=== PATIENT | male | born 1955 | race Two or more races ===

== ENCOUNTER 2017-09-25 18:51 | Inpatient (IN) | payer MEDICAID ==
[~2017-09-25] VITALS: Ht 170.2 cm; Wt 91.6 kg
--- NOTE | 2017-09-25 19:00 | NUR ---
PT BIBRA FROM HOME TO ER BED 12. HERE FOR WORSENING SOB FOR THE PAST WEEK. PT STATES HE HAS CP EARLIER RELIVED W/ NITRO. HX OF WA W/ STENT. GOWNED AND PLACED ON MONITOR. 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 AWAITING MD MEDRANO.
--- NOTE | 2017-09-25 19:20 | NUR ---
Minal sloan in ED - 09/25/17 at 1925 by EH TYLENOL 1G GIVEN PO PER JOAN VERBAL ORDER.
--- NOTE | 2017-09-25 19:23 | NUR ---
DR TORRES AT BEDSIDE FOR EVAL.
--- NOTE | 2017-09-25 19:45 | NUR ---
GREEN LUMBER GRADER AT BEDSIDE FOR BLOOD DRAW.
[2017-09-25 19:51] LABS: BASOPHILS # (AUTO) 0.1 /CMM (0.0-0.2); BASOPHILS % (AUTO) 1.3 % (0.0-2.0); HEMATOCRIT 44 % (39-51); HEMOGLOBIN 15.1 g/dL (13.5-17.5); LYMPHOCYTES # (AUTO) 1.5 /CMM (0.8-4.8); LYMPHOCYTES % (AUTO) 17.5 % (20.0-44.0); MEAN CORPUSCULAR HEMOGLOBIN 26 PG (26.0-33.0); MEAN CORPUSCULAR HGB CONC 34 g/dl (31.0-36.0); MEAN CORPUSCULAR VOLUME 76 fL (80-96); MONOCYTES # (AUTO) 0.3 /CMM (0.1-1.30); MONOCYTES % (AUTO) 3.6 % (2.0-12.0); NEUTROPHILS # (AUTO) 6.6 /CMM (1.8-8.9); NEUTROPHILS % (AUTO) 77.6 % (43.0-81.0); PLATELET COUNT (AUTO) 232 /CMM (150-450); RDW COEFFICIENT OF VARIATION 12.3 (11.5-15.0); RED BLOOD CELL COUNT(AUTO) 5.82 MIL/uL (4.5-6.0); WHITE BLOOD COUNT (AUTO) 8.5 K/uL (4.3-11.0)
[2017-09-25 20:02] LABS: CALCIUM, SERUM 8.9 mg/dL (8.5-10.1); CARBON DIOXIDE 21 mmol/L (21-32); CHLORIDE 104 mmol/L (98-107); CREATININE 1.1 mg/dL (0.6-1.3); GLUCOSE 142 mg/dL (74-106); POTASSIUM 3.8 mmol/L (3.5-5.1); SODIUM SERUM 137 mmol/L (136-145); UREA NITROGEN, BLOOD 26 mg/dL (7-18)
[2017-09-25 20:09] LABS: TROPONIN I < 0.017 ng/mL (0.00-0.056)
[2017-09-25 20:12] LABS: ALANINE AMINOTRANSFERASE 165 U/L (12-78); ALBUMIN 3.6 g/dL (3.4-5.0); ALKALINE PHOSPHATASE 59 U/L (46-116); ASPARTATE AMINOTRANSFERASE 55 U/L (15-37); BILIRUBIN,DIRECT 0.1 mg/dL (0.0-0.2); BILIRUBIN,TOTAL 0.5 mg/dL (0.2-1.0); TOTAL PROTEIN, SERUM 7.3 g/dL (6.4-8.2)
[2017-09-25 20:20] LABS: D-DIMER 0.19 mg/L(FEU (0.17-0.50); INR 1.15 (0.87-1.13)
[2017-09-25] MEDS ORDERED: NITROGLYCERIN PACKET 1 GM PACKET ONE (20:29)
[2017-09-25] MEDS ORDERED: NITROGLYCERIN PACKET 1 GM PACKET TOP ONE (20:30)
[2017-09-25 20:34] LABS: B-TYPE NATRIURETIC PEPTIDE 165 PG/ML (0-125)
--- NOTE | 2017-09-25 20:50 | NUR ---
BED 308-0
[2017-09-25] MEDS ORDERED: ACETAMINOPHEN 325 MG TABLET PO PRN (21:00)
[2017-09-25] MEDS ORDERED: ONDANSETRON HCL/PF 4 MG/2 ML VIAL IVP PRN (21:00)
[2017-09-25] MEDS ORDERED: ZOLPIDEM TARTRATE 5 MG TABLET PO PRN (21:00)
[2017-09-25] MEDS ORDERED: HYDROCODONE/APAP 5/325MG 1 EACH TABLET PO PRN (21:00)
[2017-09-25] MEDS ORDERED: Z GUARD REMEDY 2 OZ OINT TP PRN (21:00)
[2017-09-25] MEDS ORDERED: MAGNESIUM HYDROXIDE 30 ML UDC PO PRN (21:00)
[2017-09-25] MEDS ORDERED: MAG HYDROX/AL HYDROX/SIMETH 30 ML UDC PO PRN (21:00)
--- NOTE | 2017-09-25 21:10 | NUR ---
REPORT GIVEN TO SAUNDRA. PT AWAITING TRANSFER TO FLOOR.
--- NOTE | 2017-09-25 21:15 | NUR ---
tele/rn notes RECEIVED REPORT FROM ZIPPER TRIMMER HAND THIERNO. PATIENT ARRIVED ON A GURNEY ACCOMPANIED BY FAMILY MEMBERS, ABLE TO WALK WITH SUPERVISION AT STEADY GAIT, REQUIRE OXYGEN VIA NC AT 2L DUE TO SOB, NO PAIN REPORTED AT THIS TIME, ALERT, ORIENTED X3, SPEAKS OCCITAN BUT UNDERSTANDS MALDIVIAN, RECONCILE ORDERS, PATIENT PROVIDED ROOM ORIENTATION, ID BAND PLACED, TELE MONITORING AT SR 80'S. CARDIAC DIET ORDERED, PLAN OF CARE PROVIDED, SMOKING CESSATION REQUESTED.SKIN INTACT.
[2017-09-25] MEDS ORDERED: SIMV40TA5 PO (21:18)
[2017-09-25] MEDS ORDERED: ASPI-605 PO (21:18)
[2017-09-25] MEDS ORDERED: METO25TA3 PO (21:18)
[2017-09-25] MEDS ORDERED: CLOP75TA15 PO (21:18)
[2017-09-25] MEDS ORDERED: TYL2T MC (21:18)
[2017-09-25] MEDS ORDERED: LOSA25TA13 PO (21:18)
[2017-09-25] MEDS ORDERED: ENOXAPARIN SODIUM 40 MG/0.4 ML DISP.SYRIN SQ ONE (22:21)
[2017-09-25 22:44] VITALS: BP 98/58
[2017-09-25] MEDS: ENOXAPARIN SODIUM 40 MG/0.4 ML DISP.SYRIN SQ SCH (22:57)
[2017-09-25] MEDS ORDERED: ALBUTEROL FS 2.5 MG/3 ML VIAL.NEB ONE (23:50)
[2017-09-25] MEDS: IV NS 0.9% 1,000 ML IV PRN (23:51)
[2017-09-25] MEDS: ALBUTEROL FS 2.5 MG/3 ML VIAL.NEB NEB SCH (23:53)
[2017-09-26 00:01] VITALS: BP 98/53
[2017-09-26] MEDS ORDERED: ALBUTEROL FS 2.5 MG/3 ML VIAL.NEB ONE (03:57)
[2017-09-26] MEDS: ALBUTEROL FS 2.5 MG/3 ML VIAL.NEB NEB SCH ×5 (03:59→20:08)
[2017-09-26 04:33] VITALS: BP 107/68
[2017-09-26 06:59] VITALS: BP 108/78
[2017-09-26 07:17] LABS: BASOPHILS % (AUTO) 0.2 % (0.0-2.0); EOSINOPHILS % (AUTO) 0.3 % (0.0-6.0); HEMATOCRIT 41 % (39-51); HEMOGLOBIN 14.1 g/dL (13.5-17.5); LYMPHOCYTES % (AUTO) 30.6 % (20.0-44.0); MEAN CORPUSCULAR HEMOGLOBIN 26 PG (26.0-33.0); MEAN CORPUSCULAR HGB CONC 34 g/dl (31.0-36.0); MEAN CORPUSCULAR VOLUME 78 fL (80-96); MONOCYTES # (AUTO) 0.8 /CMM (0.1-1.30); MONOCYTES % (AUTO) 8.7 % (2.0-12.0); NEUTROPHILS # (AUTO) 5.8 /CMM (1.8-8.9); NEUTROPHILS % (AUTO) 60.2 % (43.0-81.0); PLATELET COUNT (AUTO) 192 /CMM (150-450); RDW COEFFICIENT OF VARIATION 13.7 (11.5-15.0); RED BLOOD CELL COUNT(AUTO) 5.33 MIL/uL (4.5-6.0); WHITE BLOOD COUNT (AUTO) 9.6 K/uL (4.3-11.0)
[2017-09-26 07:31] LABS: CALCIUM, SERUM 8.3 mg/dL (8.5-10.1); MAGNESIUM 2.5 mg/dL (1.8-2.4); PHOSPHORUS 4.9 mg/dL (2.5-4.9); POTASSIUM 3.6 mmol/L (3.5-5.1)
[2017-09-26] MEDS: IPRATROPIUM NEB FS 0.5 MG/2.5 ML AMPUL.NEB NEB SCH ×3 (07:35→20:08)
[2017-09-26 07:52] LABS: THYROID STIMULATING HORMONE 0.457 uIU/mL (0.358-3.74)
[2017-09-26 08:00] VITALS: BP 119/59
--- NOTE | 2017-09-26 08:50 | NUR ---
308-2 TELE/RN NOTES PATIENT ABLE TO SLEEP DURING THE NIGHT,NO PAIN VERBALIZED AND OBSERVED, ON 2 LITER OXYGEN JUAN J NC, RESPIRATIONS EVEN AND UNLABORED, SKIN INTACT AN DRY, CALL LIGHTS WITHIN REACH, BED IN LOCK POSITION, WILL ENDORSE TO AM RN FOR ADRIAN.
[2017-09-26] MEDS ORDERED: methylPREDNISolone SOD SUCC 125 MG/2ML VIAL IV SCH (09:00)
[2017-09-26] MEDS ORDERED: METOPROLOL SUCCINATE 25 MG TAB.SR.24H PO SCH (09:00)
--- NOTE | 2017-09-26 09:43 | NUR ---
iv site irritated and red,removed.
--- NOTE | 2017-09-26 09:50 | NUR ---
new iv angio placed rt. forearm #22.tolerated well.
[2017-09-26] MEDS: CLOPIDOGREL BISULFATE 75 MG TABLET PO SCH (09:58)
[2017-09-26] MEDS: ASPIRIN EC 81 MG TABLET.DR PO SCH (09:58)
[2017-09-26] MEDS: FLUTICASONE/VILANTEROL 1 EACH BLST.W.DEV IH SCH (11:08)
[2017-09-26] MEDS: LOSARTAN POTASSIUM 25 MG TABLET PO SCH (11:18)
--- NOTE | 2017-09-26 11:30 | NUR ---
huong benites in to see pt.
--- NOTE | 2017-09-26 12:30 | NUR ---
dvt pumps applied.
--- NOTE | 2017-09-26 12:50 | NUR ---
huong benites contacted as pt. c/o lt. sided chest pain.ekg ordered. troponins orderd.medicated with norco.
[2017-09-26] MEDS: LEVOFLOXACIN 500 MG /D5W 100ML 500 MG in PREMIX 1 EA IV SCH (13:44)
[2017-09-26] MEDS: methylPREDNISolone SOD SUCC 125 MG/2ML VIAL IV SCH ×2 (13:45→18:13)
[2017-09-26] MEDS: NICOTINE PATCH (21MG) 21 MG PATCH.TD24 TD SCH (14:00)
--- NOTE | 2017-09-26 14:02 | NUR ---
NICOTINE PATCH NOT APPLIED HAS NEW PAtch on that son just applied.
--- NOTE | 2017-09-26 15:20 | NUR ---
rapid influenza smear done.
[2017-09-26 16:00] VITALS: BP 115/69
--- NOTE | 2017-09-26 17:30 | NUR ---
son asking rn regarding sob and pt,s c/o sweating.rn checked bgl and 287,gown chg.pox checked and 99%.hob elevated rm. cooled down.color good.
--- NOTE | 2017-09-26 17:35 | NUR ---
dr. benites called and received orders for abg,chest x-ray and procalcitonin.
--- NOTE | 2017-09-26 18:00 | NUR ---
us of liver done,family at bedside.photo taken of small rash on rt. foot.photo to chart,pt. denies itching or pain in foot.rash on ball of foot.
[2017-09-26 18:05] LABS: ABG BASE EXCESS -2.5 mmol/L; ABG OXYGEN SATURATION 97.7 % (92.0-98.5); ABG PCO2 24.9 mmHg (35.0-45.0); ABG PH 7.497 (7.350-7.450); ABG PO2 105.5 mmHg (75.0-100.0); AaDO2 93.5 mmHg; COHb 0.2 % (0.5-1.5); MetHb 0.4 % (0.0-1.5); O2Hb 97.1 % (94.0-97.0); SITE, ABG Right Radial; VENT MODE, BG NASAL CANNULA
[2017-09-26] MEDS: LACTOBACILLUS RHAMNOSUS GG 1 EACH CAP.SPRINK PO SCH (18:12)
[2017-09-26] MEDS: SIMVASTATIN 40 MG TABLET PO SCH (18:13)
--- NOTE | 2017-09-26 19:00 | NUR ---
co2 from abg,chest report and callcitonin level texted to huong benites.
[2017-09-26 20:00] VITALS: BP 124/70
--- NOTE | 2017-09-26 20:00 | NUR ---
MS/RN OPENING NOTES PATIENT IN BED, HOB ELEVATE, ON 2 LITER OXYGEN VIA NC, O2 SAT 97%. B/P 124/70,PULSE,78, R-20, TEMP-97.5, VERBALIZED UNABLE TO EAT DINNER, REPORT DIFFICULTY BREATHING, RECEIVED REPORT FROM AM RN REGARDING ADRIAN, ABG RESULT WITH PCO2 ABNORMAL AT 24.9MMHG, DENIES PAIN, SKIN WARM TO TOUCH, FAMILY AT BEDSIDE, MD CALLED FOR ABG RESULT ABNORMAL, ON MED SURG ORDER AT THIS TIME, NO CHEST PAIN REPORTED, BREATHING TX ROUTINE PER MD, WILL MONITOR FOR ANY CHANGES , KEEP COMFORTABLE,.BED IN LOCK POSITION, CALL LIGHTS WITHIN REACH.
--- NOTE | 2017-09-26 21:25 | NUR ---
ms/rn notes SATELLITE DISH TECHNICIAN MD CONTACTED INFORM ABG RESULT AND INFORMED , ALSO WAS AWARE, PATIENT IS ON LOVENOX, ASPIRIN AND PLAVIX MEDICATIONS.
[2017-09-26] MEDS: ENOXAPARIN SODIUM 40 MG/0.4 ML DISP.SYRIN SQ SCH (21:32)
[2017-09-26] MEDS: IV NS 0.9% 1,000 ML IV PRN (22:05)
[2017-09-27] MEDS: IPRATROPIUM NEB FS 0.5 MG/2.5 ML AMPUL.NEB NEB SCH ×4 (00:01→19:20)
[2017-09-27] MEDS: ALBUTEROL FS 2.5 MG/3 ML VIAL.NEB NEB SCH ×7 (00:01→23:34)
--- NOTE | 2017-09-27 01:15 | NUR ---
RT ATTEMPTED TO PLACE PT ON NOC BIPAP PER MD ORDERS DUE TO PT STATING HE IS HAVING SOB. PT REFUSED BI[PAP AND STATES IT MAKES IT WORSE. RN WAS MADE AWARE OF OUTCOME. WILL CONTINUE TO MONITOR.
--- NOTE | 2017-09-27 02:59 | NUR ---
MS/RN NOTES PATIENT OBSERVED ASLEEP /COMFORTABLY WITHOUT CPAP ON PATIENT STATED NOT COMFORTABLE HAVING IT.
--- NOTE | 2017-09-27 03:46 | NUR ---
RT TX HELD PT WANTS TO SLEEP. RN AWARE. NO SOB OR RESP DISTRESS NOTED AT THIS TIME.
--- NOTE | 2017-09-27 06:44 | NUR ---
308*2 PATIENT ABLE TO SLEEP FEW HOURS, MONITORING FOR CHANGES, CPAP ORDER PATIENT STATED BREATHING DIFFICULTY BUT REFUSE TO HAVE IT ON DUE TO UNCOMFORTABLE, WILL ENDORSE TO AM RN FOR ADRIAN.SKIN INATCT AND DRY, iv SITE ON RIGHT HAND ABLE TO FLUSH . WILL ENDORSE TO AM RN FOR ADRIAN. CALL LIGHTS WITHIN REACH, BED IN LOCK POSITION.
--- NOTE | 2017-09-27 07:15 | NUR ---
RN OPENING NOTES RECEIVED PATIENT IN BED. A/O X4. ON BEDSIDE. DENIES ANY PAIN. HOB ELEVATED. ON 3LPM O2 VIA NC, COMPLAINS OF SOB, OFFERED BREATHING TREATMENT, HE SAID "OKAY". IV SITE INTACT AND PATENT. KEPT PATIENT SAFE AND COMFORTABLE IN BED. BED IN LOCKED/LOW POSITION, SIDERAILS UPX2, CALL LIGHT IN REACH. WILL CONTINUE TO MONITOR ACCORDINGLY.
--- NOTE | 2017-09-27 07:30 | NUR ---
RN NOTES BREATHING TREATMENT JUST FINISHED, PATIENT STATED ''I FEEL BETTER". WILL CONTINUE TO MONITOR ACCORDINGLY
[2017-09-27 08:00] VITALS: BP 153/92
[2017-09-27 08:28] LABS: ALANINE AMINOTRANSFERASE 126 U/L (12-78); ALBUMIN 3.5 g/dL (3.4-5.0); ALKALINE PHOSPHATASE 50 U/L (46-116); ASPARTATE AMINOTRANSFERASE 26 U/L (15-37); BILIRUBIN,DIRECT 0.1 mg/dL (0.0-0.2); BILIRUBIN,TOTAL 0.6 mg/dL (0.2-1.0); CALCIUM, SERUM 8.8 mg/dL (8.5-10.1); CARBON DIOXIDE 20 mmol/L (21-32); CHLORIDE 107 mmol/L (98-107); GLUCOSE 117 mg/dL (74-106); MAGNESIUM 2.2 mg/dL (1.8-2.4); PHOSPHORUS 2.2 mg/dL (2.5-4.9); POTASSIUM 3.5 mmol/L (3.5-5.1); SODIUM SERUM 140 mmol/L (136-145); TOTAL PROTEIN, SERUM 7.1 g/dL (6.4-8.2); UREA NITROGEN, BLOOD 20 mg/dL (7-18)
[2017-09-27 08:31] LABS: TROPONIN I < 0.017 ng/mL (0.00-0.056)
[2017-09-27 08:39] LABS: BASOPHILS % (AUTO) 0.1 % (0.0-2.0); HEMATOCRIT 43 % (39-51); HEMOGLOBIN 14.2 g/dL (13.5-17.5); LYMPHOCYTES # (AUTO) 1.4 /CMM (0.8-4.8); LYMPHOCYTES % (AUTO) 16.9 % (20.0-44.0); MEAN CORPUSCULAR HEMOGLOBIN 26 PG (26.0-33.0); MEAN CORPUSCULAR HGB CONC 33 g/dl (31.0-36.0); MEAN CORPUSCULAR VOLUME 78 fL (80-96); MONOCYTES # (AUTO) 0.5 /CMM (0.1-1.30); MONOCYTES % (AUTO) 5.5 % (2.0-12.0); NEUTROPHILS # (AUTO) 6.6 /CMM (1.8-8.9); NEUTROPHILS % (AUTO) 77.5 % (43.0-81.0); PLATELET COUNT (AUTO) 170 /CMM (150-450); RED BLOOD CELL COUNT(AUTO) 5.45 MIL/uL (4.5-6.0); WHITE BLOOD COUNT (AUTO) 8.5 K/uL (4.3-11.0)
[2017-09-27] MEDS: MORPHINE SULFATE INJ 4 MG/ML DISP.SYRIN IV PRN ×2 (08:41→16:28)
--- NOTE | 2017-09-27 08:41 | NUR ---
RN NOTES PATIENT COMPLAINED OF CHEST PAIN,05/10, AFTER GOING TO THE RESTROOM. MORPHINE GIVEN ORDERED. WILL REASSESS ACCORDINGLY
[2017-09-27] MEDS: NICOTINE PATCH (21MG) 21 MG PATCH.TD24 TD SCH (08:45)
[2017-09-27] MEDS: LACTOBACILLUS RHAMNOSUS GG 1 EACH CAP.SPRINK PO SCH ×2 (08:45→16:56)
[2017-09-27] MEDS: CLOPIDOGREL BISULFATE 75 MG TABLET PO SCH (08:45)
[2017-09-27] MEDS: methylPREDNISolone SOD SUCC 125 MG/2ML VIAL IV SCH ×2 (08:46→16:57)
[2017-09-27] MEDS: ASPIRIN EC 81 MG TABLET.DR PO SCH (08:46)
[2017-09-27] MEDS: LOSARTAN POTASSIUM 25 MG TABLET PO SCH (08:46)
[2017-09-27] MEDS: FLUTICASONE/VILANTEROL 1 EACH BLST.W.DEV IH SCH (08:52)
--- NOTE | 2017-09-27 09:11 | NUR ---
RN NOTES REASSESSED PATIENT. STATED HE FEELS '' BETTER''. BUT STILL HAS CHEST PAIN 12/08. SHA GARCIA NP NOTIFIED.
--- NOTE | 2017-09-27 09:25 | NUR ---
RN NOTES NEW ORDER OF NITRO FROM SHA GARCIA NP, NOTED AND CARRIED OUT.
[2017-09-27] MEDS: NITROGLYCERIN 0.4 MG/TAB BOTTLE SL PRN ×5 (09:48→20:14)
--- NOTE | 2017-09-27 10:00 | NUR ---
RN NOTES REASSESSED PATIENT FOR CHESTPAIN. STATED FEEL BETTER AFTER NITRO. WILL CONTINUE TO MONITOR ACCORDINGLY.
[2017-09-27] MEDS: LORAZEPAM 1 MG TABLET PO PRN (10:45)
--- NOTE | 2017-09-27 12:08 | NUR ---
RN NOTES CHEST PAIN 03/09. GAVE NITRO ORDERED. WILL REASSESS ACCORDINGLY.
--- NOTE | 2017-09-27 12:14 | NUR ---
RN NOTES REASSESSED PATIENT. STILL HAS CHEST PAIN 5/10. GAVE 2ND DOSE NITRO ORDERED. WILL REASSESS ACCORDINGLY.
--- NOTE | 2017-09-27 12:27 | NUR ---
RN NOTES REASSESSED PATIENT CHEST PAIN. STATED "FEEL BETTER NOW". PATIENT CALM AND COMFORTABLE EATING HIS LUNCH.
[2017-09-27] MEDS: LEVOFLOXACIN 500 MG /D5W 100ML 500 MG in PREMIX 1 EA IV SCH (14:08)
[2017-09-27] MEDS: IV NS 0.9% 1,000 ML IV PRN (14:09)
[2017-09-27] MEDS ORDERED: K PHOS NEUTRAL 250 MG TABLET PO ONE (15:30)
[2017-09-27 16:00] VITALS: BP 150/84
--- NOTE | 2017-09-27 16:30 | NUR ---
RN NOTES PATIENT IS FOR CT PULMONARY ANGIOGRAM, CONSENT SIGNED, CHECKLIST DONE.
[2017-09-27] MEDS: SIMVASTATIN 40 MG TABLET PO SCH (17:02)
--- NOTE | 2017-09-27 18:30 | NUR ---
RN NOTES CT PULMONARY ANGIOGRAM WITH CONTRAST DONE. PATIENT TOLERATED WELL.
--- NOTE | 2017-09-27 19:28 | NUR ---
RN CLOSING NOTES PATIENT IN BED RESTING. NO ACUTE DISTRESS, NO SOB NOTED. ALL NEEDS ATTENDED AND PROVIDED. KEPT PATIENT SAFE AND COMFORTABLE IN BED. BED IN LOW/LOCKED POSITION, SIDERAILS UPX2, CALL LIGHT IN REACH, ENDORSED TO NIGHT RN FOR ADRIAN.
--- NOTE | 2017-09-27 19:30 | NUR ---
MS/RN OPENING NOTES PT RECEIVED WITH AND FAMILY AT BEDSIDE. A/OX4, ABLE TO MAKE NEEDS KNOWN. ON 3L O2 VIA NC, BREATHING EVEN AND UNLABORED. IN NO APPARENT DISTRESS. DENIES SOB OR CHEST PAIN AT THIS TIME. IV TO RIGHT HAND PATENT AND INTACT RUNNING IVF ORDERED. NO S/S OF INFILTRATION NOTED. PT REQUESTING FOR ATIVAN TONIGHT TO HELP HIM SLEEP. BED IN LOW/LOCKED POSITION WITH CALL LIGHT IN REACH. SIDE RAILS UPX2. WILL CONTINUE TO MONITOR
[2017-09-27 20:00] VITALS: BP 138/65
--- NOTE | 2017-09-27 20:15 | NUR ---
MS/RN NOTES PT C/O CHEST PAIN 01/07. REQUESTING NITRO AT THIS TIME. OC=080/65, OX=051. WILL MONITOR FOR EFFECTIVENESS.
[2017-09-27 20:40] VITALS: BP 138/65
[2017-09-27] MEDS: ENOXAPARIN SODIUM 40 MG/0.4 ML DISP.SYRIN SQ SCH (21:21)
[2017-09-27 22:43] VITALS: BP 106/59
[2017-09-28] MEDS: IPRATROPIUM NEB FS 0.5 MG/2.5 ML AMPUL.NEB NEB SCH ×4 (01:30→21:03)
[2017-09-28] MEDS: ALBUTEROL FS 2.5 MG/3 ML VIAL.NEB NEB SCH ×5 (03:30→21:03)
[2017-09-28] MEDS: IV NS 0.9% 1,000 ML IV PRN (06:07)
[2017-09-28 06:56] LABS: BASOPHILS % (AUTO) 0.1 % (0.0-2.0); HEMATOCRIT 41 % (39-51); HEMOGLOBIN 13.6 g/dL (13.5-17.5); LYMPHOCYTES # (AUTO) 1.2 /CMM (0.8-4.8); LYMPHOCYTES % (AUTO) 12.6 % (20.0-44.0); MEAN CORPUSCULAR HEMOGLOBIN 26 PG (26.0-33.0); MEAN CORPUSCULAR HGB CONC 33 g/dl (31.0-36.0); MEAN CORPUSCULAR VOLUME 78 fL (80-96); MONOCYTES # (AUTO) 0.5 /CMM (0.1-1.30); MONOCYTES % (AUTO) 5.5 % (2.0-12.0); NEUTROPHILS % (AUTO) 81.8 % (43.0-81.0); PLATELET COUNT (AUTO) 165 /CMM (150-450); RDW COEFFICIENT OF VARIATION 13.6 (11.5-15.0); RED BLOOD CELL COUNT(AUTO) 5.19 MIL/uL (4.5-6.0); WHITE BLOOD COUNT (AUTO) 9.8 K/uL (4.3-11.0)
[2017-09-28 07:01] LABS: ALBUMIN 3.3 g/dL (3.4-5.0); BILIRUBIN,TOTAL 0.4 mg/dL (0.2-1.0); CALCIUM, SERUM 8.6 mg/dL (8.5-10.1); MAGNESIUM 2.2 mg/dL (1.8-2.4); POTASSIUM 3.9 mmol/L (3.5-5.1); TOTAL PROTEIN, SERUM 6.8 g/dL (6.4-8.2)
--- NOTE | 2017-09-28 07:03 | NUR ---
MS/RN CLOSING NOTES PT AWAKE, A/OX3. ON 2L O2 VIA NC, BREATHING EVEN AND UNLABORED. IN NO DISTRESS AT THIS TIME. DENIES SOB AND CHEST PAIN. IV TO RIGHT AC AND HAND PATENT AND INTACT RUNNING IVF ORDERED. PT STATED HE SLEPT WELL DURING THE NIGHT. REMAINS AT THE BEDSIDE. NO SIGNIFICANT CHANGES OVERNIGHT. BED IN LOW/LOCKED POSITION WITH CALL LIGHT IN REACH. SIDE RAILS UPX2. WILL ENDORSE TO DAY SHIFT RN ADRIAN.
[2017-09-28 08:00] VITALS: BP 123/73
--- NOTE | 2017-09-28 08:00 | NUR ---
RN NOTES RECEIVED PATIENT IN THE BED A/O X3/4, YI SPEAKER, PATIENT ON O2 -2L NC, NO ACUTE RESPIRATORY DISTRESS, V/S TAKEN STABLE, ENCOURAGED TO EXPRESS FEELINGS AND CONCERNS. PATIENT MED COMPLIANT, IV LINE RIGHT HAND NS AT 75 ML/HR INTACT, PATIENT AMBULATORY USING BATHROOM, AND URINAL, ALSO DVT PUMP ON, NEEDS ATTENDED AND ANTICIPATED, CALL LIGHT WITHIN TO REACH, SAFETY PRECAUTION MAINTAINED ALL THE TIME. NEXT TO THE BED. CONTINUED MONITORING.
[2017-09-28] MEDS: LOSARTAN POTASSIUM 25 MG TABLET PO SCH (08:37)
[2017-09-28] MEDS: methylPREDNISolone SOD SUCC 125 MG/2ML VIAL IV SCH ×2 (08:37→16:41)
[2017-09-28] MEDS: NICOTINE PATCH (21MG) 21 MG PATCH.TD24 TD SCH (08:38)
[2017-09-28] MEDS: CLOPIDOGREL BISULFATE 75 MG TABLET PO SCH (08:38)
[2017-09-28] MEDS: LACTOBACILLUS RHAMNOSUS GG 1 EACH CAP.SPRINK PO SCH ×2 (08:38→16:41)
[2017-09-28] MEDS: ASPIRIN EC 81 MG TABLET.DR PO SCH (08:38)
[2017-09-28] MEDS: FLUTICASONE/VILANTEROL 1 EACH BLST.W.DEV IH SCH (08:39)
[2017-09-28] MEDS: METOPROLOL TARTRATE 25 MG TABLET PO SCH ×2 (12:13→17:13)
--- NOTE | 2017-09-28 13:00 | NUR ---
rn notes patient with the delinquency counselor at this time, v/s taken scheduled medication administered, patient has no respiratory distress, no acute distress, DVT pump on, call light within to reach, family next to the bed, continued monitoring.
[2017-09-28] MEDS: LEVOFLOXACIN (500MG) 500 MG TABLET PO SCH (13:49)
--- NOTE | 2017-09-28 15:59 | NUR ---
RN NOTES PATIENT SITTING IN THE CHAIR, NO ACUTE DISTRESS, V/S TAKEN STABLE, NO ACUTE RESPIRATORY DISTRESS PATIENT ON , CALL LIGHT WITHIN TO REACH, SAFETY PRECAUTION MAINTAINED ALL THE TIME.
[2017-09-28 16:00] VITALS: BP_SYST 127; BP_SYST 137; BP_DIAS 68; BP_DIAS 74
[2017-09-28] MEDS: SIMVASTATIN 40 MG TABLET PO SCH (17:13)
--- NOTE | 2017-09-28 18:00 | NUR ---
RN NOTES PATIENT IN THE BED NO ACUTE RESPIRATORY DISTRESS, V/S TAKEN STABLE, PATIENT MED COMPLIANT. NO C/O PAIN. IV ACCESS ON RIGHT HAND INFUSING NS AT 75 ML/HR, CALL LIGHT WITHIN TO REACH, NEEDS ATTENDED AND ANTICIPATED. SAFETY PRECAUTION MAINTAINED ALL THE TIME. CONTINUED MONITORING.
[2017-09-28] MEDS: LORAZEPAM 1 MG TABLET PO PRN (19:05)
--- NOTE | 2017-09-28 19:05 | NUR ---
RN NOTES ADMINISTERED ATIVAN 1 MG PO PRN FOR ANXIETY, PER PATIENT REQUEST, V/S TAKEN BP-137/74, P-83, CONTINUED MONITORING. ENDORSED ONCOMING NURSE FOR CONTINUATION OF CARE.
--- NOTE | 2017-09-28 19:10 | NUR ---
MS/RN OPENING NOTES PT RECEIVED HOB ELEVATED. FAMILY AT BEDSIDE. ON 2L O2 VIA NC, BREATHING EVEN AND UNLABORED. NOTED WITH SOME ANXIETY AND SOB, HOWEVER PT SAYS IT IS "GETTING BETTER". PRN ATIVAN ADMINISTERED BY DAY SHIFT RN. IV TO RIGHT HAND RUNNING IVF ORDERED. BED IN LOW/LOCKED POSITION WITH CALL LIGHT IN REACH. SIDE RAILS UPX2. WILL CONTINUE TO MONITOR
[2017-09-28 20:00] VITALS: BP 132/59
[2017-09-28] MEDS: ENOXAPARIN SODIUM 40 MG/0.4 ML DISP.SYRIN SQ SCH (21:54)
[2017-09-29] MEDS: METOPROLOL TARTRATE 25 MG TABLET PO SCH ×5 (00:30→23:18)
[2017-09-29] MEDS: ALBUTEROL FS 2.5 MG/3 ML VIAL.NEB NEB SCH ×7 (00:35→23:30)
[2017-09-29] MEDS: IPRATROPIUM NEB FS 0.5 MG/2.5 ML AMPUL.NEB NEB SCH ×4 (00:35→20:18)
--- NOTE | 2017-09-29 06:20 | NUR ---
MS/RN CLOSING NOTES PT ASLEEP, A/OX3. REMAINS ON 2L O2 VIA NC, BREATHING EVEN AND UNLABORED. PT REFUSING NOCTURNAL BIPAP. IV TO RIGHT HAND PATENT AND INTACT. NO SIGNIFICANT CHANGES OVERNIGHT. SLEPT WELL DURING THE NIGHT. NO COMPLAINTS OF SOB, CHEST PAIN OR ANXIETY. BED IN LOW/LOCKED POSITION WITH CALL LIGHT IN REACH. SIDE RAILS UPX2. WILL ENDORSE TO DAY SHIFT RN ADRIAN.
--- NOTE | 2017-09-29 07:30 | NUR ---
m/s media analyst: initial assessment received pt up in chair awake, a/ox4. at bedside. denies chest pain, but c/o slight sob. breath sounds diminished to annabel lobes upon auscultation. instructed to call for assistance. on o2 at 2l/min via n/c. will continue to monitor.
[2017-09-29 08:00] VITALS: BP 124/64
[2017-09-29] MEDS: FLUTICASONE/VILANTEROL 1 EACH BLST.W.DEV IH SCH (08:34)
[2017-09-29] MEDS: NICOTINE PATCH (21MG) 21 MG PATCH.TD24 TD SCH (08:34)
[2017-09-29] MEDS: LACTOBACILLUS RHAMNOSUS GG 1 EACH CAP.SPRINK PO SCH ×2 (08:35→18:21)
[2017-09-29] MEDS: LOSARTAN POTASSIUM 25 MG TABLET PO SCH (08:35)
[2017-09-29] MEDS: ASPIRIN EC 81 MG TABLET.DR PO SCH (08:35)
[2017-09-29] MEDS: CLOPIDOGREL BISULFATE 75 MG TABLET PO SCH (08:35)
[2017-09-29] MEDS: methylPREDNISolone SOD SUCC 125 MG/2ML VIAL IV SCH (08:44)
--- NOTE | 2017-09-29 08:50 | NUR ---
m/s child nutrition director: cardio f/u seen and examined by dr. panda with new orders. cta to be done today per flat spring assembler, pt verbalized understanding and consent signed. will continue to monitor.
--- NOTE | 2017-09-29 09:30 | NUR ---
m/s advertising teacher: notes darion (rn) informing pt re: cta and it will be done tomorrow as stated. remains at bedside. will continue to monitor.
--- NOTE | 2017-09-29 10:48 | NUR ---
CTA WILL BE DONE TOMORROW OK WITH YOMAIRA LAUREN AND FLOOR IS AWARE OF IT.
--- NOTE | 2017-09-29 10:58 | NUR ---
m/s mold preparer: md visit seen by dr. lynne with new orders. orders acknowledged. pt on room air, satting at 98%. remains at bedside. will continue to monitor.
--- NOTE | 2017-09-29 14:00 | NUR ---
m/s concrete stone fabricator: notes pt up and about in unit with . no distress noted. will continue to monitor.
[2017-09-29] MEDS: LEVOFLOXACIN (500MG) 500 MG TABLET PO SCH (14:18)
[2017-09-29 16:00] VITALS: BP 121/78
--- NOTE | 2017-09-29 18:00 | NUR ---
m/s milk processing worker: notes pt remains stable. no c/o pain, sob, or any discomfort. needs attended. remains at bedside. will continue to monitor.
[2017-09-29] MEDS: SIMVASTATIN 40 MG TABLET PO SCH (18:21)
--- NOTE | 2017-09-29 19:00 | NUR ---
m/s framework developer: notes report given to pablo (rachael) for continuity of care.
--- NOTE | 2017-09-29 19:15 | NUR ---
RN OPENING NOTES PT AWAKE AND RESTING IN BED. FAMILY AT BEDSIDE. NO COMPLAINTS OF PAIN, SOB OR DISTRESS AT THIS TIME. PT HAS A RIGHT AC #22 IV, INTACT AND PATENT. PT IS AMBULATORY WITH [facility]. SAFETY PRECAUTIONS IN PLACE. BED IN LOW, LOCKED POSITION, X2 SIDERAILS UP CALL LIGHT WITHIN REACH. WILL CONTINUE TO MONITOR.
[2017-09-29 20:00] VITALS: BP 123/63
[2017-09-29] MEDS: ENOXAPARIN SODIUM 40 MG/0.4 ML DISP.SYRIN SQ SCH (20:10)
[2017-09-30] VITALS (7 sets, daily range): BP systolic 94–127; BP diastolic 51–74
[2017-09-30] MEDS: IPRATROPIUM NEB FS 0.5 MG/2.5 ML AMPUL.NEB NEB SCH ×5 (01:30→23:04)
[2017-09-30] MEDS: ALBUTEROL FS 2.5 MG/3 ML VIAL.NEB NEB SCH ×6 (03:30→22:55)
[2017-09-30] MEDS: METOPROLOL TARTRATE 25 MG TABLET PO SCH ×3 (06:00→18:00)
--- NOTE | 2017-09-30 06:00 | NUR ---
RN NOTES PT BLOOD PRESSURE WAS 101/57 RATE 78.
[2017-09-30 07:01] LABS: CALCIUM, SERUM 8.7 mg/dL (8.5-10.1); MAGNESIUM 2.3 mg/dL (1.8-2.4); PHOSPHORUS 4.1 mg/dL (2.5-4.9); POTASSIUM 4.2 mmol/L (3.5-5.1)
--- NOTE | 2017-09-30 07:27 | NUR ---
RN CLOSING NOTES PT AWAKE AND RESTING IN BED. FAMILY AT BEDSIDE. NO COMPLAINTS OF PAIN, SOB OR DISTRESS AT THIS TIME. PT HAS A RIGHT AC #22 IV, INTACT AND PATENT. PT IS AMBULATORY WITH [facility]. SAFETY PRECAUTIONS IN PLACE. BED IN LOW, LOCKED POSITION, X2 SIDERAILS UP CALL LIGHT WITHIN REACH. PT HAS CT ANGIO SCHEDULED FOR TODAY. WILL ENDORSE TO DAY SHIFT NURSE FOR CONTINUITY OF CARE.
--- NOTE | 2017-09-30 08:00 | NUR ---
m/s irrigationist: initial assessment received pt up in chair awake, a/ox4. at bedside. denies chest pain, but c/o slight sob. breath sounds diminished to annabel lobes upon auscultation. instructed to call for assistance. will continue to monitor.
[2017-09-30] MEDS: LOSARTAN POTASSIUM 25 MG TABLET PO SCH (08:58)
[2017-09-30] MEDS: ASPIRIN EC 81 MG TABLET.DR PO SCH (08:59)
[2017-09-30] MEDS: CLOPIDOGREL BISULFATE 75 MG TABLET PO SCH (08:59)
[2017-09-30] MEDS: predniSONE 20 MG TABLET PO SCH (08:59)
[2017-09-30] MEDS: FLUTICASONE/VILANTEROL 1 EACH BLST.W.DEV IH SCH (08:59)
[2017-09-30] MEDS: NICOTINE PATCH (21MG) 21 MG PATCH.TD24 TD SCH (08:59)
[2017-09-30] MEDS: LACTOBACILLUS RHAMNOSUS GG 1 EACH CAP.SPRINK PO SCH ×2 (08:59→17:44)
[2017-09-30] MEDS ORDERED: METOPROLOL TARTRATE INJ 5 MG/5 ML AMPUL ONE ×3 (11:46→12:35)
--- NOTE | 2017-09-30 12:17 | NUR ---
m/s adjuster and inspector: notes pre op meds for cta given by rn supervisor blasting and informed me to hold po meds, pt was given ivp as stated. family and 2 licensed staff at bedside. will continue to monitor.
[2017-09-30] MEDS ORDERED: METOPROLOL TARTRATE INJ 5 MG/5 ML AMPUL IVP ONE (13:22)
[2017-09-30] MEDS ORDERED: IOHEXOL-350 100 ML VIAL IV ONE ×2 (13:36→14:01)
--- NOTE | 2017-09-30 13:45 | NUR ---
m/s financial service rep: notes taken down to radiology dept via bed via acls protocol accompanied by 2 licensed and 1 eradicator.
--- NOTE | 2017-09-30 14:20 | NUR ---
m/s die sizer: notes pt back from cta accompanied by rn in stable condition. b/p 112/69, hr 71. lunch ordered. at bedside. instructed to call for assistance. will continue to monitor.
[2017-09-30] MEDS: LEVOFLOXACIN (500MG) 500 MG TABLET PO SCH (14:38)
--- NOTE | 2017-09-30 16:00 | NUR ---
m/s motor coach tour operator: notes vital signs remains stable. noted above rac h/l swelling, removed with tip intact. ice pack applied and elevated with pillow. sherie chavarria ([facility]) aware. family remains at bedside. will continue to monitor.
--- NOTE | 2017-09-30 17:00 | NUR ---
m/s supervisor toy parts former: notes sherie ([facility]) at bedside and updated pt and family re: cta results, pt for possible transfer to another acute hospital tomorrow. pt and family verbalized understanding of instructions from sherie ([facility]). will continue to monitor.
[2017-09-30] MEDS: SIMVASTATIN 40 MG TABLET PO SCH (17:44)
--- NOTE | 2017-09-30 19:00 | NUR ---
m/s commercial illustrator: notes report given to pablo (rachael) for continuity of care.
--- NOTE | 2017-09-30 19:10 | NUR ---
RN OPENING NOTES PT RESTING IN BED, FAMILY AT BEDSIDE. NO COMPLAINTS OF PAIN, SOB, OR DISTRESS AT THIS TIME. PT HAS A LEFT AC #22 INTACT AND PATENT. PT IS AMBULATORY WITH [facility]. CTA DONE TODAY WILL A POSSIBLE TRANSFER TO [facility] TOMORROW MORNING. SAFETY PRECAUTIONS IN PLACE. BED IN LOW, LOCKED POSITION, X2SIDE RAILS UP. CALL LIGHT WITHIN REACH. WILL CONTINUE TO MONITOR.
[2017-09-30] MEDS: ENOXAPARIN SODIUM 40 MG/0.4 ML DISP.SYRIN SQ SCH (21:13)
[2017-09-30] MEDS ORDERED: IPRATROPIUM NEB FS 0.5 MG/2.5 ML AMPUL.NEB NEB PRN (23:00)
[2017-10-01] MEDS: METOPROLOL TARTRATE 25 MG TABLET PO SCH ×5 (00:30→23:22)
[2017-10-01] MEDS ORDERED: IPRATROPIUM NEB FS 0.5 MG/2.5 ML AMPUL.NEB ONE (01:02)
[2017-10-01] MEDS: IPRATROPIUM NEB FS 0.5 MG/2.5 ML AMPUL.NEB NEB SCH ×6 (03:15→22:56)
[2017-10-01] MEDS: ALBUTEROL FS 2.5 MG/3 ML VIAL.NEB NEB SCH ×6 (03:15→22:56)
--- NOTE | 2017-10-01 07:05 | NUR ---
RN CLOSING NOTES PT RESTING IN BED, FAMILY AT BEDSIDE. NO COMPLAINTS OF PAIN, SOB, OR DISTRESS AT THIS TIME. PT HAS A LEFT AC #22 INTACT AND PATENT. PT IS AMBULATORY WITH [facility]. POSSIBLE TRANSFER TO [facility] TODAY. SAFETY PRECAUTIONS IN PLACE. BED IN LOW, LOCKED POSITION, X2SIDE RAILS UP. CALL LIGHT WITHIN REACH. WILL ENDORSE TO DAY SHIFT NURSE FOR CONTINUITY OF CARE.
--- NOTE | 2017-10-01 07:25 | NUR ---
MSRN OPENING NOTES. PT RECEIVED A&0X3 WITH FAMILY AT BEDSIDE, PT TOLERATING ROOM AIR WITHOUT SOB, PT REPORTS PAIN 1/10 TO CHEST, NO RADIATING. NO OTHER COMPLAINTS OR OBVIOUS S/S. PT WITH IVC AT L AC G#22 INTACT AND SALINE FLUSH PATENT. PT BED IN LOWEST LOCKED POSITION WITH HANDRAILX2 AND CALL GARY WITHIN REACH. PT WITHOUT CONCERN OR COMPLIANT AT THIS TIME.
--- NOTE | 2017-10-01 07:58 | NUR ---
PT REFUSED MEDS DUE TO DISCHARGE TO DIFFERENT HOSPITAL
[2017-10-01 08:00] VITALS: BP 109/68
[2017-10-01] MEDS: LOSARTAN POTASSIUM 25 MG TABLET PO SCH (09:00)
--- NOTE | 2017-10-01 10:00 | NUR ---
MSRN NOTES. PT PREPARED FOR D/C TO [facility] PER MD, PT BRIEFED ON [facility] D/C PACKET AND DOCUMENTS SIGNED. PT WITH ALL BELONGINGS AND DOCUMENT SIGNED. PT IVC REMOVED. PT THEN LEFT FLOOR WITH EMT. [facility] CALLED TO CANCEL PT R/T: LACK OF BEDS. PT COLLECTED FROM AMBULANCE AND RETURNED [facility]. PT BREIFED ON CHANGE OF PLAN AND CONNECTED WITH MD AND CASE MANAGEMENT. PT TRANSFERRED TO ROOM 321-1 FOR PT COMFORT. WILL CONTINUE TO MONITOR.
[2017-10-01] MEDS: NICOTINE PATCH (21MG) 21 MG PATCH.TD24 TD SCH (10:27)
[2017-10-01] MEDS: ASPIRIN EC 81 MG TABLET.DR PO SCH (10:28)
[2017-10-01] MEDS: CLOPIDOGREL BISULFATE 75 MG TABLET PO SCH (10:28)
[2017-10-01] MEDS: predniSONE 20 MG TABLET PO SCH (10:29)
[2017-10-01] MEDS: LACTOBACILLUS RHAMNOSUS GG 1 EACH CAP.SPRINK PO SCH ×2 (10:29→17:51)
[2017-10-01] MEDS: FLUTICASONE/VILANTEROL 1 EACH BLST.W.DEV IH SCH (10:33)
[2017-10-01] MEDS: LEVOFLOXACIN (500MG) 500 MG TABLET PO SCH (15:12)
[2017-10-01 16:00] VITALS: BP 109/80
[2017-10-01] MEDS: SIMVASTATIN 40 MG TABLET PO SCH (17:52)
--- NOTE | 2017-10-01 18:40 | NUR ---
MSRN CLOSING NOTES. PT REMAINS A&0X3, TOLERATING ROOM AIR WITH SAO2 WNL AND DENIES PAIN OR DISCOMFORT. PT WITH IVC AT L WRIST G22 INTACT AND OPERATIONAL. PT RESTING WITH FAMILY AT BEDSIDE. PT BED IN LOWEST LOCKED POSITION WITH HANDRAILSX2 AND CALL GARY WITHIN REACH. ALL DAY NURSE DUTIES ATTENDED TO, WILL ENDORSE TO NIGHT NURSE.
--- NOTE | 2017-10-01 19:30 | NUR ---
MS RN OPENING NOTES: RECEIVED PT AWAKE AND IS A/O3. PT HAS MULTIPLE FAMILY MEMBERS AT BEDSIDE. PT HAS IV ON L WRIST #22G AND IS PATENT AND INTACT. CURRENTLY S/L. PT EATING AT THIS TIME. PT ON ROOM AIR AND IS TOLERATING WELL. CALL LIGHT WITHIN PT'S REACH. BED KEPT IN LOW, LOCKED POSITION, AND SIDE RAILS X 2UP. WILL CONTINUE TO MONITOR PT.
[2017-10-01 20:00] VITALS: BP 113/66
[2017-10-01] MEDS: ENOXAPARIN SODIUM 40 MG/0.4 ML DISP.SYRIN SQ SCH (21:28)
--- NOTE | 2017-10-02 01:10 | NUR ---
MS RN NOTES: INFORMED DR. PRINCE THAT PT IS TO GO TO [facility]. PICKUP IS AT 0230 AM. AWARE. ALSO INFORMED HIM THAT DISCHARGE MED RECON AND NEW PRESCRIPTIONS HAVE NOT BEEN COMPLETED. DR PRINCE SAID JUST TO PRINT THE HOME MEDS AND ATTACH IT WITH HIS DISCHARGE PAPERS. NO PRESCRIPTIONS WERE GIVEN AT THIS TIME.
--- NOTE | 2017-10-02 01:25 | NUR ---
MS RN NOTES: GAVE REPORT TO SHAYNE COLLAZO AT [facility].
[2017-10-02 02:33] VITALS: BP 113/66
[2017-10-02] MEDS: IPRATROPIUM NEB FS 0.5 MG/2.5 ML AMPUL.NEB NEB SCH (02:34)
[2017-10-02] MEDS: ALBUTEROL FS 2.5 MG/3 ML VIAL.NEB NEB SCH (02:35)
--- NOTE | 2017-10-02 02:59 | NUR ---
MS RN NOTES: CONTACTED [facility] MOTORBOAT MECHANIC HELPER FROM [facility] [phone] ; NO VOICEMAIL HAS BEEN SET UP SO NO WAY TO LEAVE MESSAGE. CALLED HER 4X. NO SEISMIC PROSPECTING OBSERVER HELPER.
--- NOTE | 2017-10-02 03:01 | NUR ---
MS RN NOTES: PT AND FAMILY MEMBERS AT BEDSIDE CONCERNED ABOUT ETA OF AMBULANCE TO TRANSFER THEM TO [facility] ; CONTACTED GROUT MACHINE OPERATOR HUBERT FROM [facility] AND NO AGENT BASED MODELER. STILL AWAITING FOR PICKUP.
--- NOTE | 2017-10-02 03:31 | NUR ---
MS RN NOTES: CONTACTED REGAL COORDINATOR TO GET UPDATES TO [facility]Y [employer] SALES AGENT FOR TRANSFER IS NOT HERE YET. FAMILY AND PATIENT UPSET. WILL UPDATE THEM SOON WE GET A CALL BACK/UPDATE.
--- NOTE | 2017-10-02 04:50 | NUR ---
MS RN NOTES: TREASURE COLLAZO RN FROM [facility] THAT THERE HAS BEEN A DELAY WITH THE TRANSPORTATION AND THAT ETA TO [facility] IS 0500.
--- NOTE | 2017-10-02 05:37 | NUR ---
MS BELLA NOTES: PT LEFT IN STABLE CONDITION WITH Latio. ACCOMPANIED WITH 3 FAMILY MEMBERS AT BEDSIDE. Addendum: 10/02/17 at 0546 by ROBBIE ROB RN PT LEFT WITH L WRIST #22G IN REQUEST FROM SHAYNE COLLAZO FROM [facility]. PT TO GO TO ROOM 6324 ; [facility]
== END 2017-10-02 05:40 | disposition short-term general hospital (02) | DRG 133 ==
LOC: ER 18:52 → TELE 21:28 → MED 09-26 10:50
PROVIDERS: ADMIT Internal Medicine; ATTEND Internal Medicine
DX: J96.01 Acute respiratory failure with hypoxia (principal); N17.0 Acute kidney failure with tubular necrosis; E87.3 Alkalosis; E44.0 Moderate protein-calorie malnutrition; R07.81 Pleurodynia; I24.9 Acute ischemic heart disease, unspecified; J44.0 Chronic obstructive pulmonary disease with (acute) lower respiratory infection; E11.9 Type 2 diabetes mellitus without complications; E78.5 Hyperlipidemia, unspecified; I10 Essential (primary) hypertension; J20.9 Acute bronchitis, unspecified; I25.2 Old myocardial infarction; J44.1 Chronic obstructive pulmonary disease with (acute) exacerbation; K21.9 Gastro-esophageal reflux disease without esophagitis; Z95.5 Presence of coronary angioplasty implant and graft; Z82.49 Family history of ischemic heart disease and other diseases of the circulatory system; Z79.899 Other long term (current) drug therapy; Z79.82 Long term (current) use of aspirin; Z79.01 Long term (current) use of anticoagulants; F41.9 Anxiety disorder, unspecified; F17.200 Nicotine dependence, unspecified, uncomplicated; Z68.31 Body mass index [BMI] 31.0-31.9, adult; E66.2 Morbid (severe) obesity with alveolar hypoventilation; I25.110 Atherosclerotic heart disease of native coronary artery with unstable angina pectoris
CPT/HCPCS: 36415; 36600; 71045-TC; 75574; 76700-TC; 80048-TC; 80053-TC; 80061-TC; 80076-TC; 82746; 82962-TC; 83540-TC; 83735-TC; 83880; 84100-TC; 84443-TC; 84484-TC; 85025-TC; 85378-TC; 85730-TC; 87081-TC; 87400; 93307-TC; 94799-TC; A4216; A4606; J1650; J1956; J2270; J2930; J3490; J7030; Q9967; Z7610